=== PATIENT | female | born 1945 | race Caucasian/White ===

== ENCOUNTER 2018-08-22 19:53 | Inpatient (IN) | payer MEDICARE ==
[~2018-08-22] VITALS: Ht 160 cm; Wt 104.5 kg
[2018-08-22] MEDS ORDERED: XANAX0.5 MG PO (20:08)
[2018-08-22] MEDS ORDERED: FISH OIL 1,0001 CA1 PO (20:08)
[2018-08-22] MEDS ORDERED: BAYER CHEWABLE81 MG PO (20:08)
[2018-08-22] MEDS ORDERED: LISINOPRIL5 MG PO (20:08)
[2018-08-22] MEDS ORDERED: MUCINEX600 MG PO (20:08)
[2018-08-22] MEDS ORDERED: PROZAC20 MG PO (20:09)
[2018-08-22] MEDS ORDERED: OMEPRAZOLE20 M1 PO (20:09)
[2018-08-22] MEDS ORDERED: LIPITOR10 MG PO (20:09)
[2018-08-22] MEDS ORDERED: CENTRUM COMPLE1 EACH PO (20:09)
[2018-08-22] MEDS ORDERED: BUSPAR10 MG PO (20:09)
--- NOTE | 2018-08-22 20:10 | NUR ---
PT IN WITH C/O HAVING BRIGHT RED BLOODY STOOLS X 4 STARTED THIS AFTERNOON AND HAS CONTINUED. PT AND HER DAUGHTER STATES THIS HAS HAPPENED MANY TIMES BEFORE.
[2018-08-22 21:00] VITALS: BP 128/72
--- NOTE | 2018-08-22 21:00 | NUR ---
PT SITTING UP ON STRETCHER, DAUGHTER AT BEDSIDE. GUAC WAS POSITIVE, DENIES ANY PAIN. TOOK PATIENT TO BATHROOM AND SHE HAD ANOTHER BLOODY STOOL.
[2018-08-22 21:25] LABS: BASOPHILS 0.1 % (0-2); EOSINOPHILS 1.3 % (0-7); HEMATOCRIT 34.9 % (36.0-48.0); HEMOGLOBIN 11.3 g/dL (12-16); IMMATURE GRANULOCYTES 0.3 % (0-5); LYMPHOCYTES 14.1 % (15-50); MCH 28.8 pg (26.0-34.0); MCHC 32.4 g/dL (31.0-37.0); MCV 88.8 fL (80.0-100.0); NEUTROPHILS 74.2 % (40-80); PLATELET COUNT 225 10x3/uL (130-400); RBC 3.93 10x6/uL (4.00-5.40); RDW 14.5 % (11.5-14.5); WBC 7.7 10x3/uL (4.8-10.8)
[2018-08-22 21:37] LABS: APTT 32.2 SECONDS (22.8-39.4); PROTIME 12.7 SECONDS (11.6-15.0)
[2018-08-22 22:00] VITALS: BP 126/71
[2018-08-22 22:02] LABS: ANION GAP 12.6 mmol/L (8-16); BILIRUBIN - TOTAL 0.47 mg/dL (0.2-1.3); CALCIUM 8.5 mg/dL (8.5-10.1); CARBON DIOXIDE 30.9 mmol/L (21.0-32.0); CREATININE - SERUM 1.1 mg/dL (0.6-1.3); POTASSIUM - SERUM 3.5 mmol/L (3.5-5.1); PROTEIN - SERUM 7.2 g/dL (6.4-8.2)
[2018-08-22 23:00] VITALS: BP 131/77
--- NOTE | 2018-08-22 23:30 | NUR ---
MEDICATIONS GIVEN PER ORDER, CALL LIGHT WITHIN REACH.
--- NOTE | 2018-08-23 01:30 | NUR ---
MOVED PATIENT TO ROOM 16, ASSISTED TO BATHROOM, ANOTHER BLOODY STOOL. DAUGHTER BROUGHT IN HER CPAP.
[2018-08-23 01:37] VITALS: BP 128/78
--- NOTE | 2018-08-23 03:30 | NUR ---
LEVAQUIN INFUSION COMPLETED AT 0330.
[2018-08-23 04:54] LABS: BASOPHILS 0.2 % (0-2); EOSINOPHILS 1.9 % (0-7); HEMATOCRIT 31.3 % (36.0-48.0); HEMOGLOBIN 9.8 g/dL (12-16); IMMATURE GRANULOCYTES 0.2 % (0-5); MCH 28.3 pg (26.0-34.0); MCHC 31.3 g/dL (31.0-37.0); MCV 90.5 fL (80.0-100.0); MEAN PLATELET VOLUME 9.5 fL (7.4-10.4); MONOCYTES 8.4 % (2-11); NEUTROPHILS 63.3 % (40-80); PLATELET COUNT 234 10x3/uL (130-400); RBC 3.46 10x6/uL (4.00-5.40); RDW 14.7 % (11.5-14.5); WBC 6.2 10x3/uL (4.8-10.8)
--- NOTE | 2018-08-23 07:15 | NUR ---
REPORT RECEIVED AND CARE ASSUMED. DAUGHTER AT BEDSIDE. RESTING WITH EYES CLOSED. AWAKEN, BUT REFUSES TO EAT AT THIS TIME. NO DISTRESS NOTED. WILL CONTINUE TO MONITOR.
[2018-08-23 11:22] VITALS: BP 123/63; BMI 41.7
[2018-08-23] MEDS ORDERED: ZOFRAN4 MG PO (11:55)
[2018-08-23] MEDS ORDERED: PHENERGAN25 MG RC (11:57)
[2018-08-23] MEDS ORDERED: PROVENTIL/2.5 MG/3 M INH (11:58)
[2018-08-23] MEDS ORDERED: MOBIC7.5 MG PO (11:59)
[2018-08-23] MEDS ORDERED: MUCINEX600 MG PO (12:00)
[2018-08-23 14:56] VITALS: BMI 41.6
[2018-08-23 15:12] VITALS: BP 140/61
--- NOTE | 2018-08-23 15:20 | NUR ---
RECEIVED PT FROM ER VIA WHEELCHAIR WITH DAUGHTER. PT ALERT AND ORIENTED. FREQUENT FALLS, FALL PRECAUTION. PT ADMITTED WITH DIVERTICULITIS AND COLITIS. 4-5 BLOODY STOOLS. ALLERGIES SULFA AND ADHESIVE TAPE. PT HAS OWN CPAP MACHINE, DAUGHTER BROUGHT FROM HOME. PT ON 2L, NC. PT UP WITH ASSIST. IV TO RIGHT FOREARM, SITE PATENT WITHOUT REDNESS OR SWELLING, SL. PT DENIES ANY PAIN. NO S/S OF ACUTE DISTRESS NOTED. DAUGHTER AT BEDSIDE, NURSE ON MED SURG NIGHTS. PT DENIES ANYTHING FURTHER AT THIS TIME. CALL LIGHT IN REACH. WILL CONTINUE TO MONITOR.
[2018-08-23 16:58] LABS: BASOPHILS 0.2 % (0-2); EOSINOPHILS 3.7 % (0-7); HEMATOCRIT 29.5 % (36.0-48.0); HEMOGLOBIN 9.4 g/dL (12-16); IMMATURE GRANULOCYTES 0.6 % (0-5); LYMPHOCYTES 21.3 % (15-50); MCH 28.7 pg (26.0-34.0); MCHC 31.9 g/dL (31.0-37.0); MCV 90.2 fL (80.0-100.0); MEAN PLATELET VOLUME 9.6 fL (7.4-10.4); MONOCYTES 10.7 % (2-11); NEUTROPHILS 63.5 % (40-80); PLATELET COUNT 226 10x3/uL (130-400); RBC 3.27 10x6/uL (4.00-5.40); RDW 14.7 % (11.5-14.5); WBC 5.4 10x3/uL (4.8-10.8)
[2018-08-23 17:35] LABS: APPEARANCE CLEAR (CLEAR); BILIRUBIN NEGATIVE (NEGATIVE); COLOR YELLOW (YELLOW); GLUCOSE NEGATIVE (NEGATIVE); KETONE NEGATIVE (NEGATIVE); NITRITE NEGATIVE (NEGATIVE); PROTEIN NEGATIVE (NEGATIVE); UROBILINOGEN NORMAL (NORMAL)
[2018-08-23 17:37] LABS: BACTERIA MODERATE /hpf (NONE SEEN); EPITHELIAL CELLS 0-5 /hpf (0-5); RED CELLS - URINE 25-50 /hpf (0-5); WHITE CELLS - URINE 0-5 /hpf (0-5)
--- NOTE | 2018-08-23 17:52 | NUR ---
PT RESTING IN BED, EYES OPEN. NO C/O PAIN. NO S/S OF ACUTE DISTRESS NOTED. FALL PRECAUTIONS IN PLACE. TOSHA ALARM ON AND WORKING. DAUGHTER AT BEDSIDE. PT DENIES ANYTHING FURTHER AT THIS TIME. CALL LIGHT IN REACH. WILL CONTINUE TO MONITOR.
--- NOTE | 2018-08-23 19:33 | NUR ---
ASSISTED PT TO BATHROOM. PT ALERT AND ORIENTED ON 2L NC. PT COMPLAINS OF HEADACHE 12/02. PRN TYLENOL GIVEN. RESPIRATIONS EVEN AND UNLABORED. PT FAMILY AT BEDSIDE. DENIES ANY NEEDS AT THIS TIME. BED LOW SIDE RAILS X2 CALL LIGHT WITHIN REACH. WILL CONTINUE TO MONITOR.
[2018-08-23 20:00] VITALS: BP 117/50
[2018-08-23 20:31] LABS: HEMOGLOBIN 9.5 g/dL (12-16)
[2018-08-24] VITALS: BP 94/36
--- NOTE | 2018-08-24 | NUR ---
PT LAYING IN BED RESTING WITH EYES CLOSED RESPIRATIONS EVEN AND UNLABORED. PT ON HOME C-PAP WITH DAUGHTER AT BEDSIDE. BED LOW CALL LIGHT WITHIN REACH. WILL CONTINUE TO MONITOR
--- NOTE | 2018-08-24 02:31 | NUR ---
PT ASLEEP ON SIDE WITH CPAP ON. RESPIRATIONS EVEN AND UNLABORED. DUAGHTER AT BEDSIDE. CALL LIGHT WITHIN REACH. WILL CONTINUE TO MONITOR.
[2018-08-24 04:00] VITALS: BP 119/50
[2018-08-24 04:43] LABS: BASOPHILS 0.2 % (0-2); EOSINOPHILS 3.9 % (0-7); HEMATOCRIT 29.2 % (36.0-48.0); HEMOGLOBIN 9.1 g/dL (12-16); IMMATURE GRANULOCYTES 0.2 % (0-5); LYMPHOCYTES 27.9 % (15-50); MCH 28.3 pg (26.0-34.0); MCHC 31.2 g/dL (31.0-37.0); MEAN PLATELET VOLUME 8.9 fL (7.4-10.4); MONOCYTES 10.4 % (2-11); NEUTROPHILS 57.4 % (40-80); PLATELET COUNT 193 10x3/uL (130-400); RBC 3.21 10x6/uL (4.00-5.40); RDW 14.6 % (11.5-14.5); WBC 4.6 10x3/uL (4.8-10.8)
[2018-08-24 05:01] LABS: ANION GAP 8.5 mmol/L (8-16); CALCIUM 8.1 mg/dL (8.5-10.1); CARBON DIOXIDE 32.1 mmol/L (21.0-32.0); CREATININE - SERUM 1.2 mg/dL (0.6-1.3); POTASSIUM - SERUM 3.6 mmol/L (3.5-5.1)
--- NOTE | 2018-08-24 08:00 | NUR ---
AM ROUNDS COMPLETED. PT AA0X3, VSS, RR UNLABORED, NO S/S OF DISTRESS. PT UP IN BED WITH EYES OPEN. FAMILY @BEDSIDE. PT STATES SHE HAD ANOTHER BLOODY BM THIS AM. AM MEDS GIVEN. WILL CPOC. CL IN REACH, BED IN LOW. WILL CTM.
[2018-08-24 08:58] VITALS: BP 159/64
[2018-08-24 11:55] VITALS: BP 129/51
[2018-08-24 13:07] LABS: HEMATOCRIT 33.5 % (36.0-48.0); HEMOGLOBIN 10.5 g/dL (12-16)
--- NOTE | 2018-08-24 13:37 | NUR ---
PT IN THE TOILET. PT HAVE HAD 2 BLOODY BM SINCE 0800. WILL CTM. CL IN REACH BED IN LOW.
--- NOTE | 2018-08-24 13:46 | HP ---
PATIENT: LUISA CABAN MEDICAL RECORD: [id number] ACCOUNT: [id number] LOCATION:[facility], [place].[address]109 : 46 ADMISSION DATE: 08/22/18 PCP: APPLE OLIVEIRA MD HISTORY AND PHYSICAL EXAMINATION DATE OF ADMISSION: 08/22/2018 CHIEF COMPLAINT: Blood per rectum. HISTORY: This is a 73-year-old female who came to the Emergency Department after passing blood per rectum. She has had 6 episodes now according to her daughter. This is a recurring problem. She has been admitted several times with the same thing. CT of abdomen and pelvis this time had findings suggesting descending and sigmoid diverticulitis. She is admitted. PAST MEDICAL AND SURGICAL HISTORY: 1. Depression. 2. Osteoarthritis. 3. Hypertension. 4. Reflux. 5. Multiple admits for diverticulitis or diverticulosis with bleeding. 6. Anxiety. 7. History of heart disease; however, an angiogram at [place] last year showed no obstructions. 8. She has got sleep apnea and she had a thyroid cyst biopsied earlier this month. PAST SURGICAL HISTORY: Cataract repair, cholecystectomy, bladder sling, and thyroid biopsy. As far as GI workup she has had, Dr. Toro did an EGD and a colonoscopy on 02/03/2017 at [place] showing a small hiatal hernia, mild gastritis, and diverticulosis coli. There was a 1-cm rectal polyp and mild internal hemorrhoids. It was felt that her GI bleed at that time was likely diverticular in nature. She was admitted again in November of 2017, then May 2018, and now. ALLERGIES: SULFA. SOCIAL HISTORY: . Lives with her daughter. HABITS: Never smoked. No alcohol or drugs. FAMILY HISTORY: Father is . He had hypertension, heart disease, and some sort of cancer. Mother is . She had hypertension, heart disease, and some sort of cancer. HOME MEDICATIONS: Albuterol via nebulizer q. 6 hours p.r.n. shortness of breath, Prozac 40 mg a day, amlodipine 5 mg a day, buspirone 10 mg a day, omeprazole 20 mg twice a day, cetirizine 10 mg once a day, alprazolam 0.5 mg every 12 hours p.r.n. anxiety, multivitamin once a day, Lutein 20 mg capsule once a day, aspirin 81 mg once a day, meloxicam 7.5 mg once a day, atorvastatin 20 mg at bedtime, cranberry extract 500 mg once a day, Buspar 5 mg at bedtime, and guaifenesin 400 mg twice a day. REVIEW OF SYSTEMS: HISTORY AND PHYSICAL [id number] LUISA CABAN GENERAL: No major weight changes. HEENT: No particular sinus or allergy problems. RESPIRATORY: She does have some sort of chronic respiratory problems. She has seen wind project manager over at [place]. She definitely has sleep apnea, is on CPAP at home. CARDIAC: She has had history of chest pain, reportedly heart disease; however, an angiogram in 2018 at [place] did not show any significant blockage at all. GASTROINTESTINAL: She has had reflux and recurring diverticulitis/diverticulosis with GI bleed. MUSCULOSKELETAL: She has arthritis. NEUROLOGIC: Denies seizures or migraines. PSYCHIATRIC: She has anxiety. PHYSICAL EXAMINATION: VITAL SIGNS: Temperature 98.0, pulse 78, respiratory rate is 18, blood pressure 123/63, and O2 sat 96%. GENERAL: She does not appear to be in acute distress at this time. HEENT: Grossly within normal limits. NECK: Supple. HEART: Regular rate and rhythm without murmur. LUNGS: Clear. ABDOMEN: Obese with tenderness in the left lower quadrant. No guarding. No rebound. No mass. PELVIC: Not done. RECTAL: Not done. Her stool was checked in the Emergency Department. EXTREMITIES: No pitting edema. LABORATORIES: CBC with white count of 6200, hemoglobin 9.8, and hematocrit 31.3. Basic metabolic panel is all okay. INR 1.0. DIAGNOSTIC DATA: CT of abdomen and pelvis; descending and sigmoid diverticulitis. ASSESSMENT: Recurring diverticulitis with heme-positive stool. PLAN: We will admit. Start on clear liquid diet, IV Flagyl, and Levaquin. Dr. Toro has been consulted. Other tests or procedures as warranted. Also, the patient did have a biopsy of thyroid nodule done earlier this month. This is under a different medical record number for some reason. It showed a follicular patterned lesion, and under comment, if the biopsy was growing solitary thyroid nodule, this could represent either a follicular adenoma or carcinoma or noninvasive follicular thyroid neoplasm with papillary-like nuclear features. Final diagnosis can be made only on excision to evaluate capsular/vascular invasion. With this, Dr. Gomes needs to be consulted in some time, possibly during this hospitalization. TRANSINT:[id number] Voice Confirmation ID: [id number] DOCUMENT ID: [id number] HISTORY AND PHYSICAL [id number] LUISA CABAN WILLIAM MD at 1346 CC: [id number] DICTATION DATE: 08/23/18 180 DIRECTOR OF QUALITY: 08/23/18 1900 ADM IN [place] [id number] [place] [id number]
[2018-08-24 15:55] VITALS: BP 154/46
[2018-08-24 16:49] LABS: BASOPHILS 0.2 % (0-2); EOSINOPHILS 2.6 % (0-7); HEMATOCRIT 30.6 % (36.0-48.0); HEMOGLOBIN 9.7 g/dL (12-16); IMMATURE GRANULOCYTES 0.2 % (0-5); LYMPHOCYTES 24.3 % (15-50); MCH 28.6 pg (26.0-34.0); MCHC 31.7 g/dL (31.0-37.0); MCV 90.3 fL (80.0-100.0); MEAN PLATELET VOLUME 8.9 fL (7.4-10.4); NEUTROPHILS 63.7 % (40-80); PLATELET COUNT 209 10x3/uL (130-400); RBC 3.39 10x6/uL (4.00-5.40); RDW 14.3 % (11.5-14.5); WBC 5.4 10x3/uL (4.8-10.8)
[2018-08-24 20:00] VITALS: BP 155/55
[2018-08-24 20:24] LABS: HEMOGLOBIN 10.2 g/dL (12-16)
--- NOTE | 2018-08-24 20:45 | NUR ---
RESUMING PT CARE. PT IS ALERT LAYING IN THE BED WATCHING TV WITH NO C/O VOICED AT THIS TIME. RESPIRATIONS ARE EVEN AND UNLABORED. PT HAS A IV IN THE RT FOREARM. BED IN THE LOW POSITION WITH CALL LIGHT IN REACH. SIDE RAILS UP X 2. WILL CONTINUE TO MONITOR PT AND FOLLOW PLAN OF CARE.
--- NOTE | 2018-08-24 20:50 | NUR ---
RESUMIMG PT CARE. PT IS ALERT LAYING IN BED WATCHING TV WITH NO C/O VOICED AT THIS TIME. BED IN LOW POSITION WITH CALL LIGHT IN REACH. SIDE RAILS UP X 2. WILL CONTINUE TO MONITOR PT AND FOLLOW PLAN OF CARE.
[2018-08-25] VITALS: BP 135/52
[2018-08-25 04:00] VITALS: BP 131/52
[2018-08-25 05:58] LABS: BASOPHILS 0.2 % (0-2); EOSINOPHILS 2.4 % (0-7); HEMATOCRIT 28.4 % (36.0-48.0); HEMOGLOBIN 9.1 g/dL (12-16); IMMATURE GRANULOCYTES 0.2 % (0-5); LYMPHOCYTES 20.9 % (15-50); MCH 28.8 pg (26.0-34.0); MCV 89.9 fL (80.0-100.0); MEAN PLATELET VOLUME 9.1 fL (7.4-10.4); MONOCYTES 11.9 % (2-11); NEUTROPHILS 64.4 % (40-80); PLATELET COUNT 226 10x3/uL (130-400); RBC 3.16 10x6/uL (4.00-5.40); RDW 14.4 % (11.5-14.5); WBC 4.9 10x3/uL (4.8-10.8)
--- NOTE | 2018-08-25 06:54 | NUR ---
PT IS ALERT LAYING IN BED WITH NO C/O VOICED AT THIS TIME. BED IN THE LOW POSITION WITH CALL LIGHT IN REACH. WILL CONTINUE TO MONITOR PT AND FOLLOW PLAN OF CARE.
--- NOTE | 2018-08-25 08:00 | NUR ---
AM ROUNDS COMPLETED. VSS, AAOX3, RR UNLABORED, NO S/S OF DISTRESS. PT CURRENTLY IN BED WITH EYES OPEN. PT STATES HER STOMACH ACHE IS A LOT BETTER AFTER TAKEN THE ZOFRAN. AM MEDS GIVEN WITH APPLE SAUCE. PT DENIES ANY FURTHER NEEDS AT THIS TIME. WILL CPOC. CL IN REACH, BED IN LOW. WILL CTM.
[2018-08-25 08:02] VITALS: BP 132/66
[2018-08-25 11:25] VITALS: BP 147/64
[2018-08-25 12:36] LABS: HEMATOCRIT 30.8 % (36.0-48.0); HEMOGLOBIN 9.6 g/dL (12-16)
[2018-08-25 13:51] VITALS: Ht 160 cm; Wt 104.5 kg
[2018-08-25 17:26] LABS: BASOPHILS 0.3 % (0-2); EOSINOPHILS 1.7 % (0-7); HEMATOCRIT 32.9 % (36.0-48.0); HEMOGLOBIN 10.5 g/dL (12-16); IMMATURE GRANULOCYTES 0.3 % (0-5); LYMPHOCYTES 22.4 % (15-50); MCH 28.6 pg (26.0-34.0); MCHC 31.9 g/dL (31.0-37.0); MCV 89.6 fL (80.0-100.0); MEAN PLATELET VOLUME 9.4 fL (7.4-10.4); MONOCYTES 10.3 % (2-11); PLATELET COUNT 248 10x3/uL (130-400); RBC 3.67 10x6/uL (4.00-5.40); RDW 14.5 % (11.5-14.5); WBC 5.9 10x3/uL (4.8-10.8)
--- NOTE | 2018-08-25 18:00 | NUR ---
FOUND BLOOD TINGED TISSUE ON PT BED. I ASKED PT WHERE THE BLOOD IS FROM. PT STATES ITS FROM HER NOSTRILS AND SHE ALSO STATES SHE'S HAD THAT FOR OVER A YEAR. PT HAVE NO S/S OF BLEEDING AT THIS TIME. SHE STATES "IT HAPPENS WHENEVER MY NOSE GETS DRY FROM NASAL CANULA. WILL CTM. CL IN REACH, BED IN LOW.
--- NOTE | 2018-08-25 19:15 | NUR ---
Received patient resting in bed with eyes closed, deemed to be sleeping, PIV in right hand has NS infusing TKVO @10mkl/hr. No signs of distress at this time, respirations easy and regular, oxygen on @2L/min via nasal cannula.
[2018-08-25 20:00] VITALS: BP 121/57
--- NOTE | 2018-08-25 23:45 | NUR ---
Complains of dry nose, commenced humidified oxygen.
[2018-08-26] VITALS: BP 103/49
--- NOTE | 2018-08-26 00:11 | NUR ---
Patient deemed to be sleeping, respirations easy and regular.
[2018-08-26 04:00] VITALS: BP 105/48
[2018-08-26 05:20] LABS: BASOPHILS 0.2 % (0-2); EOSINOPHILS 2.2 % (0-7); HEMATOCRIT 27.8 % (36.0-48.0); HEMOGLOBIN 8.8 g/dL (12-16); IMMATURE GRANULOCYTES 0.2 % (0-5); LYMPHOCYTES 28.2 % (15-50); MCH 28.5 pg (26.0-34.0); MCHC 31.7 g/dL (31.0-37.0); MEAN PLATELET VOLUME 9.2 fL (7.4-10.4); MONOCYTES 13.2 % (2-11); PLATELET COUNT 209 10x3/uL (130-400); RBC 3.09 10x6/uL (4.00-5.40); RDW 14.6 % (11.5-14.5); WBC 4.6 10x3/uL (4.8-10.8)
--- NOTE | 2018-08-26 05:25 | NUR ---
Per Tech, patient did have soft BM but did not see any gregg blood in it.
[2018-08-26 05:27] LABS: CARBON DIOXIDE 30.2 mmol/L (21.0-32.0); POTASSIUM - SERUM 3.2 mmol/L (3.5-5.1)
--- NOTE | 2018-08-26 06:30 | NUR ---
Slept well using CPAP, still has CPAP on at this time. No signs of distress.
--- NOTE | 2018-08-26 08:00 | NUR ---
RECIEVED BEDSIDE REPORT. AM ROUNDS COMPLETED. PT VSS, AAOX3, RR UNLABORED, NO S/S OF DISTRESS. PT HAD ONE BM THIS AM, AND IT IS A A LITTLE BLOOD TINGED. PT FAMILY AT BEDSIDE. AM MEDS GIVEN. PT RECIEVING HUMIDIFIED O2. PT DENIES ANY FURTHER NEEDS AT THIS TIME. WILL CTM. CL IN REACH, BED IN LOW.
[2018-08-26 09:02] VITALS: BP 116/50
--- NOTE | 2018-08-26 12:00 | NUR ---
PT C/O ABDOMINAL ACHE. STATES PAIN 01/02. PRN TYLENOL GIVEN. WILL CTM. FAMILY AT BEDSIDE. CL IN REACH, BED IN LOW.
[2018-08-26 13:48] VITALS: BP 105/45
--- NOTE | 2018-08-26 14:15 | NUR ---
Nutrition follow-up: Diet: Full liquids PO intake 25-50% of meals +BM, still with blood Labs reviewed RDN following.
[2018-08-26 16:38] VITALS: BP 116/46
--- NOTE | 2018-08-26 19:15 | MORECARE ---
CASE MANAGEMENT DISCHARGE SUMMARY PATIENT: LUISA CABAN UNIT: [id number] ADM DATE: 08/22/18 AGE: 73 : 46 SEX: F ROOM/BED: D.2104 AUTHOR: MAHOGANY STAFFORD PHYSICIAN: REFERRING PHYSICIAN: APPLE OLIVEIRA MD DATE OF SERVICE: 08/26/18 Discharge Plan Patient Name: LUISA CABAN Facility: [facility]:[place] : 1945 Planned Disposition: Home Anticipated Discharge Date: Discharge Date: Expected LOS: Initial Reviewer: [email or web address] Initial Review Date: 08/26/2018 Generated: 08/26/18 8:14 pm Comments DCP- Discharge Planning Updated by [id number]: Thomas Crum on 08/26/18 6:[address] Patient Name: LUISA CABAN Admission Status: ER Accout number: [id number] Admission Date: 08-22-2018 : 1945 Admission Diagnosis:HEMORRHAGE OF ANUS AND RECTUM Attending: APPLE OLIVEIRA Current LOS: 4 Anticipated DC Date: Planned Disposition: Home Primary Insurance: MEDICARE A & B Discharge Planning Comments: CM MET WITH PT AND DAUGHTER IN ROOM TO DISCUSS DISCHARGE PLANNING AND NEEDS. LUISA CABAN provided verbal consent to discuss current and ongoing needs with/in the presence of: DAUGHTER ARELY. PT REPORTS LIVING AT HOME DEPENDENT WITH HER ADULT DAUGHTER WHO ASSISTS WITH TRANSFERS AND MEDICATION MANAGEMENT. PT HAS CPAP AND INCONTINENCE SUPPLIES FROM [facility]; PT HAS NEBULIZERAND HOME / PORTABLE OXYGEN FROM [facility]. PT HAS ROLLLING WALKER. PT'S DAUGHTER IS PAID CAREGIVER THROUGH [employer] [employer], 14 1/2 HOURS PER WEEK. PT HAS NO OTHER OUTSIDE SERVICES ASSISTING IN THE HOME. CM DISCUSSED AVAILABILITY OF HOME HEALTH, REHAB SERVICES AND MEDICAL EQUIPMENT. PT DENIES DISCHARGE NEEDS, REPORTS HER DAUGHTER WILL PICK HER UP FOR DISCHARGE HOME. IMPORTANT MESSAGE FROM MEDICARE PROVIDED AND EXPLAINED. PT PLANS TO DISCHARGE HOME WITH ADULT DAUGHTER, DENIES DISCHARGE NEEDS AT THIS TIME. CM TO FOLLOW AND ASSIST NEEDED. Geomorphology Teacher: Thomas Crum DCPIA - Discharge Planning Initial Assessment Updated by [email or web address]: Thomas Crum on 08/26/18 7:11 pm * Is the patient Alert and Oriented? Yes * How many steps to enter\exit or inside your home? 4-0 / 1-I * PCP DR. OLIVEIRA * Pharmacy [facility] [address] * Preadmission Environment Home with Family * ADLs Partial Dependent * Partial ADLs (Assistance needed) Medication Management Transfers * Equipment CPAP Nebulizer Other Oxygen Rolling Walker * Other Equipment HOME AND PORTABLE OXYGEN - [employer] INCONTINENCE SUPPLIES - [employer] * List name and contact numbers for known caregivers / representatives who currently or will assist patient after discharge: ARELY CARRILLO, DTR, * Verbal permission to speak to the caregivers and representatives has been obtained from the patient. Yes * Community resources currently utilized Private Duty Care * Please name any agencies selected above. DAUGHTER IS PAID CAREGIVER THROUGH [facility], 4 DAYS FOR 3 HOURS; 1 DAY FOR 2 1/2 HOURS * Additional services required to return to the preadmission environment? No * Can the patient safely return to the preadmission environment? Yes * Has this patient been hospitalized within the prior 30 days at any hospital? No Coverage Notice Reviewer: [id number] Malgorzata Crum Notice Issued Date-Time: 08/26/2018 12:05 Notice Type: IM Discharge Notice Notice Delivered To: Family Member Relationship to Patient: Daughter Concrete Boom Operator Name: ARELY CARRILLO Delivery Method: HAND - Hand Delivered Carole Days: Prior Verbal Notification: Recipient Understood Notice: Yes Recipient Signature: Yes Med Rec Note Co-signed by Attending: Coverage Notice Comment: Patient Name: LUISA CABAN Page [id number] at 1915 All edits/amendments must be made on the electronic document DICTATION DATE: 08/26/181913 ROSS FURNACE OPERATOR: BELLO 08/26/181913 RPT#: [id number] DC DATE: STATUS: ADM IN [facility] [address] [place] [address] END OF REPORT
--- NOTE | 2018-08-26 19:30 | NUR ---
RECIEVED REPORT ON PT. PT SITTING UP IN BED ALERT AND ORIENTED. DUAGHTER AT BEDSIDE. PT DENIES ANY NEEDS OR PAIN AT THIS TIME. BED LOW CALL LIGHT WITHIN REACH. WILL CONTINUE TO MONITOR.
[2018-08-26 20:00] VITALS: BP 118/48
--- NOTE | 2018-08-27 01:35 | NUR ---
PT RESTING COMFORTABLY IN BED WITH WITH C-PAP. RESPIRATIONS EVEN AND UNLABORED. DUAGHTER AT BEDSIDE. BED LOW CALL LIGHT WITHIN REACH. WILL CONTINUE TO MONITOR.
[2018-08-27 04:00] VITALS: BP 130/45
--- NOTE | 2018-08-27 07:41 | NUR ---
INITIAL ROUNDING, CAREGIVERS INTRODUCED, WHITE BOARD UPDATED. PATIENT AWAKE AND DAUGHTER AT THE BEDSIDE. PATIENT DENIES PAIN, O2 VIA NC IN PLACE, PATIENT RESTING IN BED, NO SOB/DISTRESS NOTED. WILL CONT TO MONITOR
[2018-08-27 09:40] VITALS: BP 147/57
--- NOTE | 2018-08-27 10:33 | NUR ---
IN REVIEWING NOTES FROM DR CHACKO, H&H WAS TO BE RECHECKED THIS AM BUT WAS NOT ORDERED. STAT LAB ORDERED AT THIS TIME FOR H&H
[2018-08-27 11:28] LABS: HEMATOCRIT 29.5 % (36.0-48.0); HEMOGLOBIN 9.4 g/dL (12-16)
[2018-08-27] MEDS ORDERED: LEVOFLOXACIN500 MG PO (12:18)
[2018-08-27] MEDS ORDERED: FLAGYL500 MG PO (12:19)
--- NOTE | 2018-08-29 09:00 | MORECARE ---
CASE MANAGEMENT DISCHARGE SUMMARY PATIENT: LUISA CABAN UNIT: [id number] ADM DATE: 08/22/18 AGE: 73 : 46 SEX: F ROOM/BED: D.8446 AUTHOR: RIVERADOC PHYSICIAN: REFERRING PHYSICIAN: APPLE OLIVEIRA MD DATE OF SERVICE: 08/29/18 Discharge Plan Patient Name: LUISA CABAN Facility: [facility]:[place] : 1945 Planned Disposition: Home Anticipated Discharge Date: 08/27/18 Discharge Date: 08/27/2018 Expected LOS: 5 Initial Reviewer: [email or web address] Initial Review Date: 08/26/2018 Generated: 08/29/18 10:00 am Comments DCP- Discharge Planning Updated by [email or web address]: Thomas Crum on 08/26/18 6:[address] Patient Name: LUISA CABAN Admission Status: ER Accout number: [id number] Admission Date: 08-22-2018 : 1945 Admission Diagnosis:HEMORRHAGE OF ANUS AND RECTUM Attending: APPLE OLIVEIRA Current LOS: 4 Anticipated DC Date: Planned Disposition: Home Primary Insurance: MEDICARE A & B Discharge Planning Comments: CM MET WITH PT AND DAUGHTER IN ROOM TO DISCUSS DISCHARGE PLANNING AND NEEDS. LUISA CABAN provided verbal consent to discuss current and ongoing needs with/in the presence of: DAUGHTER ARELY. PT REPORTS LIVING AT HOME DEPENDENT WITH HER ADULT DAUGHTER WHO ASSISTS WITH TRANSFERS AND MEDICATION MANAGEMENT. PT HAS CPAP AND INCONTINENCE SUPPLIES FROM [employer]; PT HAS NEBULIZERAND HOME / PORTABLE OXYGEN FROM [facility]. PT HAS ROLLLING WALKER. PT'S DAUGHTER IS PAID CAREGIVER THROUGH [facility], 14 1/2 HOURS PER WEEK. PT HAS NO OTHER OUTSIDE SERVICES ASSISTING IN THE HOME. CM DISCUSSED AVAILABILITY OF HOME HEALTH, REHAB SERVICES AND MEDICAL EQUIPMENT. PT DENIES DISCHARGE NEEDS, REPORTS HER DAUGHTER WILL PICK HER UP FOR DISCHARGE HOME. IMPORTANT MESSAGE FROM MEDICARE PROVIDED AND EXPLAINED. PT PLANS TO DISCHARGE HOME WITH ADULT DAUGHTER, DENIES DISCHARGE NEEDS AT THIS TIME. CM TO FOLLOW AND ASSIST NEEDED. Manager Math: Thomas Crum DCPIA - Discharge Planning Initial Assessment Updated by [email or web address]: Thomas Crum on 08/26/18 7:11 pm * Is the patient Alert and Oriented? Yes * How many steps to enter\exit or inside your home? 4-0 / 1-I * PCP DR. OLIVEIRA * Pharmacy [facility] [address] * Preadmission Environment Home with Family * ADLs Partial Dependent * Partial ADLs (Assistance needed) Medication Management Transfers * Equipment CPAP Nebulizer Other Oxygen Rolling Walker * Other Equipment HOME AND PORTABLE OXYGEN - [employer] INCONTINENCE SUPPLIES - [employer] * List name and contact numbers for known caregivers / representatives who currently or will assist patient after discharge: ARELY CARRILLO, DTR, * Verbal permission to speak to the caregivers and representatives has been obtained from the patient. Yes * Community resources currently utilized Private Duty Care * Please name any agencies selected above. DAUGHTER IS PAID CAREGIVER THROUGH [facility], 4 DAYS FOR 3 HOURS; 1 DAY FOR 2 1/2 HOURS * Additional services required to return to the preadmission environment? No * Can the patient safely return to the preadmission environment? Yes * Has this patient been hospitalized within the prior 30 days at any hospital? No Coverage Notice Reviewer: [id number] Malgorzata Crum Notice Issued Date-Time: 08/26/2018 12:05 Notice Type: IM Discharge Notice Notice Delivered To: Family Member Relationship to Patient: Daughter Sales Incentive Analyst Name: RAELY CARRILLO Delivery Method: HAND - Hand Delivered Carole Days: Prior Verbal Notification: Recipient Understood Notice: Yes Recipient Signature: Yes Med Rec Note Co-signed by Attending: Coverage Notice Comment: Last DP export: 08/26/18 6:15 pm Patient Name: LUISA CABAN Page [id number] at 0900 All edits/amendments must be made on the electronic document DICTATION DATE: 08/29/18 0900 WELDER METAL FAB: BELLO 08/29/18 0900 RPT#: [id number] DC DATE:08/27/18 STATUS: DIS IN [facility] [address] [place] [address] END OF REPORT
== END 2018-08-27 15:26 | disposition home or self-care (01) | DRG 378 ==
LOC: EDBD 19:53 → D.ER 19:53 → D.EDHOLD 23:07 → D.M2 23:07 → D.EDHOLD 08-23 01:35 → D.M2 08-23 14:30
PROVIDERS: Emergency Medicine; Internal Medicine Gastroenterology; ADMIT Family Medicine
DX: K57.33 Diverticulitis of large intestine without perforation or abscess with bleeding (principal); D62 Acute posthemorrhagic anemia; F32.9 Major depressive disorder, single episode, unspecified; I10 Essential (primary) hypertension; F41.9 Anxiety disorder, unspecified; K21.9 Gastro-esophageal reflux disease without esophagitis; G47.30 Sleep apnea, unspecified